=== PATIENT | female | born 1975 | race Caucasian/White ===

== ENCOUNTER 2020-01-13 16:18 | Emergency (ER) | payer SELFPAY ==
[~2020-01-13] VITALS: Ht 160 cm; Wt 84.4 kg
[2020-01-13 16:24] VITALS: Ht 160 cm; Wt 84.4 kg
[2020-01-13 17:02] VITALS: BP 142/74
== END 2020-01-13 17:03 | disposition home or self-care (01) ==
LOC: ED 16:18
DX: R05 Cough (principal); R06.02 Shortness of breath; R51 Headache; Z20.828 Contact with and (suspected) exposure to other viral communicable diseases
CPT/HCPCS: J7030; U0002